=== PATIENT | female | born 1960 | race Asian ===

== ENCOUNTER 2018-01-22 13:45 | Emergency (ER) | payer MEDICAID ==
[~2018-01-22] VITALS: Ht 160 cm; Wt 73.4 kg
[~2018-01-22 13:45] MED LIST: ACET-2119 PO; ALLO100T15 PO; HYDR25SU32 RC; LORA10TA7 PO; LOSA100T28 PO; METO100T7 PO; PANT-47 PO; SUCR1TAB PO; TRAM50TA2 PO; TRAZ-146 PO; ZOL50T PO
[2018-01-22 18:05] LABS: BASOPHILS % (AUTO) 0 % (0-1); EOSINOPHILS # (AUTO) 0.2 X10'3 (0-0.9); EOSINOPHILS % (AUTO) 2.3 % (0-6); HEMATOCRIT 43.8 % (35.0-45.0); LYMPHOCYTES % (AUTO) 26.5 % (21-51); MEAN CORPUSCULAR HEMOGLOBIN 29.9 PG (27.0-31.0); MEAN CORPUSCULAR HGB CONC 34.3 % (33.0-36.5); MEAN CORPUSCULAR VOLUME 87.2 FL (78-98); MEAN PLATELET VOLUME 7.9 FL (7.4-10.4); MONOCYTES # (AUTO) 0.5 X10'3 (0-0.9); MONOCYTES % (AUTO) 7.1 % (2-12); NEUTROPHILS # (AUTO) 4.8 X10'3 (1.8-7.7); NEUTROPHILS % (AUTO) 64.1 % (42-75); PLATELET COUNT 227 X10'3 (140-440); RED BLOOD COUNT 5.02 X10'6 (4.20-5.60); RED CELL DISTRIBUTION WIDTH 13.4 % (11.5-14.5); WHITE BLOOD COUNT 7.5 X10'3 (4.5-11.0)
[2018-01-22 18:27] LABS: ALANINE AMINOTRANSFERASE 40 U/L (12-78); ALBUMIN 3.8 G/DL (3.4-5.0); ALBUMIN/GLOBULIN RATIO 0.8 (1.1-1.5); ALKALINE PHOSPHATASE 93 IU/L (46-116); ANION GAP 11 (8-16); ASPARTATE AMINO TRANSFERASE 23 U/L (10-37); BILIRUBIN,TOTAL 0.8 MG/DL (0.1-1.0); BLOOD UREA NITROGEN 23 MG/DL (7-18); BUN/CREATININE RATIO 19.3 (6.6-38.0); CALCIUM 9.6 MG/DL (8.5-10.1); CHLORIDE 104 MMOL/L (99-107); CREATININE 1.19 MG/DL (0.40-0.90); GLUCOSE 104 MG/DL (70-104); SODIUM 141 MMOL/L (135-145); TOTAL CARBON DIOXIDE 26.5 MMOL/L (24-32); TOTAL PROTEIN 8.7 G/DL (6.4-8.2); eGFR 47 ML/MIN
[2018-01-22] MEDS ORDERED: PANT-47 PO (19:34)
[2018-01-22] MEDS ORDERED: HYDR-4069 PO (19:34)
[2018-01-22 20:38] VITALS: BP 181/102
== END 2018-01-22 20:39 | disposition home or self-care (01) ==
LOC: ER 13:45
DX: K21.9 Gastro-esophageal reflux disease without esophagitis (principal); I10 Essential (primary) hypertension; Z90.89 Acquired absence of other organs; Z98.890 Other specified postprocedural states; Z79.899 Other long term (current) drug therapy
CPT/HCPCS: 36415; 70450; 71045; 80053; 83880; 84484; 85025; 93005; 99285

== ENCOUNTER 2022-10-12 09:31 | Day surgery (SDC) | payer MEDICAID ==
[~2022-10-12] VITALS: Ht 160 cm; Wt 73.2 kg
[~2022-10-12 09:31] MED LIST changes: -LOSA100T28 PO; +LOSA100T57 PO; +SERT-153 PO; -TRAZ-146 PO; +TRAZ-256 PO; -ZOL50T PO
[2022-10-12 09:50] VITALS: BP 134/58
[2022-10-12] MEDS ORDERED: MIDAZolam 1 MG/ML 5ML VIAL ONE (09:54)
[2022-10-12] MEDS ORDERED: FENTANYL CITRATE/PF 50 MCG/1 ML VIAL ONE (09:54)
[2022-10-12] MEDS ORDERED: OMEP20CA16 PO (10:03)
[2022-10-12] MEDS ORDERED: AMLO10TA13 PO (10:03)
[2022-10-12] MEDS ORDERED: HYDROCHLOROTHIAZIDE PO (10:03)
[2022-10-12] MEDS ORDERED: METO50TA16 PO (10:03)
[2022-10-12] MEDS ORDERED: METF-1203 PO (10:03)
[2022-10-12] MEDS ORDERED: ATOR20TA66 PO (10:03)
[2022-10-12] MEDS ORDERED: CHOL100040 PO (10:08)
[2022-10-12 11:10] VITALS: BP 82/41
[2022-10-12 11:20] VITALS: BP 105/59
[2022-10-12 11:30] VITALS: BP 112/49
[2022-10-12 11:40] VITALS: BP 123/67
== END 2022-10-12 11:50 | disposition home or self-care (01) ==
LOC: GI LAB 09:31
PROVIDERS: ATTEND Internal Medicine Gastroenterology
DX: Z08 Encounter for follow-up examination after completed treatment for malignant neoplasm (principal); D12.3 Benign neoplasm of transverse colon; K64.2 Third degree hemorrhoids; Z86.010 Personal history of colon polyps
CPT/HCPCS: 45385; J2250; J3010; J7030; Z7512; 99152; 99153; A4620; C1889